=== PATIENT | female | born 1990 | race Two or more races ===

== ENCOUNTER 2021-07-01 04:52 | Inpatient (IN) | payer OTHER ==
[2021-07-01 11:57] LABS: BASO % 0.8 % (0-2.0); EOS % 3.3 % (0-4.5); HEMATOCRIT 38.2 % (32.4-45.2); HEMOGLOBIN 12.6 GM/dL (10.7-15.3); LYMPH % 34.4 % (8-40); MCH 25.9 pg (25.7-33.7); MEAN CELL VOLUME 78.6 fl (80-96); MONO % 6.8 % (3.8-10.2); NEUT % 54.7 % (42.8-82.8); PLATELET COUNT 308 10^3/uL (134-434); RBC 4.86 M/mm3 (3.60-5.2); RDW 14.2 % (11.6-15.6); WHITE BLOOD COUNT 7.2 K/mm3 (4.0-10.0)
[2021-07-01 12:01] LABS: INR 1.18 (0.83-1.09); PROTHROMBIN TIME (PATIENT) 13.2 SEC (9.7-13.0)
[2021-07-01 12:04] LABS: ACTIVATED PTT 33.3 SECONDS (25.2-36.5)
[2021-07-01 12:16] LABS: BLOOD UREA NITROGEN 10.2 mg/dL (7-18); CALCIUM 9.3 mg/dL (8.5-10.1)
[2021-07-01 12:19] LABS: CREATININE 0.9 mg/dL (0.55-1.3)
[2021-07-01] MEDS ORDERED: PROPOFOL 20 ML ONE ×2 (13:43→14:47)
[2021-07-01] MEDS ORDERED: KETOROLAC TROMETHAMINE 30 MG/1 ML VIAL ONE (13:43)
[2021-07-01] MEDS ORDERED: SUCCINYLCHOLINE CHLORIDE 200 MG/10 ML SYRINGE ONE ×2 (13:43→14:47)
[2021-07-01] MEDS ORDERED: DEXAMETHASONE SOD PHOSPHATE 4 MG/1 ML VIAL ONE (13:43)
[2021-07-01] MEDS ORDERED: LIDOCAINE HCL/PF 2% SDV 5ML VIAL ONE (13:43)
[2021-07-01] MEDS ORDERED: LIDOCAINE HCL 2% 100 MG/5 ML DISP.SYRIN ONE (13:43)
[2021-07-01] MEDS ORDERED: oxyCODONE HCL 5 MG TABLET PO PRN (14:38)
[2021-07-01] MEDS ORDERED: ONDANSETRON 4 MG/2 ML VIAL IVPUSH PRN ×2 (14:38→15:27)
[2021-07-01] MEDS ORDERED: ELECTROLYTE-148 SOLN 1,000 ML IV SCH (14:45)
[2021-07-01] MEDS ORDERED: PROMETHAZINE HCL 25 MG/1 ML VIAL IVPUSH PRN (15:27)
[2021-07-01] MEDS ORDERED: FUROSEMIDE 40 MG/4 ML INJECTABLE VIAL ONE (15:54)
[2021-07-01 18:45] LABS: BASO % 0.3 % (0-2.0); EOS % 0.1 % (0-4.5); HEMATOCRIT 37.1 % (32.4-45.2); HEMOGLOBIN 12.6 GM/dL (10.7-15.3); LYMPH % 8.5 % (8-40); MCH 26.1 pg (25.7-33.7); MCHC 33.9 g/dl (32.0-36.0); MEAN CELL VOLUME 77.1 fl (80-96); MEAN PLT VOLUME 7.9 fl (7.5-11.1); MONO % 2.4 % (3.8-10.2); NEUT % 88.7 % (42.8-82.8); PLATELET COUNT 313 10^3/uL (134-434); RBC 4.81 M/mm3 (3.60-5.2); RDW 14.2 % (11.6-15.6); WHITE BLOOD COUNT 15.4 K/mm3 (4.0-10.0)
[2021-07-01 19:12] LABS: CALCIUM 8.9 mg/dL (8.5-10.1)
[2021-07-01 19:14] LABS: ALBUMIN 3.5 g/dl (3.4-5.0); BLOOD UREA NITROGEN 11.5 mg/dL (7-18)
[2021-07-01 19:17] LABS: BILIRUBIN,TOTAL 0.3 mg/dL (0.2-1); CREATININE 1.4 mg/dL (0.55-1.3)
[2021-07-01 19:18] LABS: TOT PROT 7.2 g/dl (6.4-8.2)
[2021-07-01] MEDS: oxyCODONE HCL 5 MG TABLET PO PRN (22:25)
[2021-07-02 07:17] LABS: CALCIUM 8.9 mg/dL (8.5-10.1)
[2021-07-02 07:18] LABS: ALBUMIN 3.2 g/dl (3.4-5.0); MAGNESIUM 2.4 mg/dL (1.8-2.4)
[2021-07-02 07:20] LABS: CREATININE 1.1 mg/dL (0.55-1.3); PHOSPHOROUS 4.6 mg/dL (2.5-4.9)
[2021-07-02 07:22] LABS: BILIRUBIN,TOTAL 0.7 mg/dL (0.2-1)
[2021-07-02] MEDS: oxyCODONE HCL 5 MG TABLET PO PRN ×3 (08:03→21:00)
[2021-07-02] MEDS ORDERED: ACETAMINOPHEN 325 MG TABLET (FP) PO ONE (12:14)
[2021-07-03] MEDS: IBUPROFEN 600 MG TABLET (FP) PO PRN ×2 (00:35→08:13)
[2021-07-03 06:49] LABS: HEMATOCRIT 34.9 % (32.4-45.2); HEMOGLOBIN 11.4 GM/dL (10.7-15.3); MCH 25.8 pg (25.7-33.7); MCHC 32.7 g/dl (32.0-36.0); MEAN CELL VOLUME 78.9 fl (80-96); MEAN PLT VOLUME 8.1 fl (7.5-11.1); PLATELET COUNT 255 10^3/uL (134-434); RBC 4.42 M/mm3 (3.60-5.2); RDW 14.1 % (11.6-15.6); WHITE BLOOD COUNT 9.9 K/mm3 (4.0-10.0)
[2021-07-03 06:58] LABS: CALCIUM 8.6 mg/dL (8.5-10.1)
[2021-07-03 06:59] LABS: BLOOD UREA NITROGEN 14.2 mg/dL (7-18)
[2021-07-03 07:03] LABS: BILIRUBIN,TOTAL 0.3 mg/dL (0.2-1); CREATININE 1.1 mg/dL (0.55-1.3); TOT PROT 6.4 g/dl (6.4-8.2)
[2021-07-03] MEDS ORDERED: ACETYLCYSTEINE 20% 200MG/ML 30 ML VIAL *FOR ORAL / INH USE ONLY NEB SCH (10:00)
[2021-07-03] MEDS: IBUPROFEN 800 MG/8 ML IJ IVPB PRN ×2 (13:36→21:39)
[2021-07-03] MEDS: guaiFENesin 200 MG/10 ML 10 ML UNIT-DOSE CUPS PO PRN ×2 (13:37→21:42)
[2021-07-03] MEDS ORDERED: SODIUM CHLORIDE NASAL SPRAY 44 ML BOTTLE NS PRN (20:07)
[2021-07-03] MEDS: ALBUTEROL SO4 0.083% IH SOL 2.5 MG/3 ML VIAL.NEB. NEB PRN (21:41)
[2021-07-04 06:43] LABS: BASO % 0.8 % (0-2.0); EOS % 5.3 % (0-4.5); HEMOGLOBIN 11.3 GM/dL (10.7-15.3); LYMPH % 35.5 % (8-40); MCH 26.6 pg (25.7-33.7); MCHC 33.4 g/dl (32.0-36.0); MEAN CELL VOLUME 79.5 fl (80-96); MEAN PLT VOLUME 7.9 fl (7.5-11.1); MONO % 8.8 % (3.8-10.2); NEUT % 49.6 % (42.8-82.8); PLATELET COUNT 262 10^3/uL (134-434); RBC 4.27 M/mm3 (3.60-5.2); WHITE BLOOD COUNT 7.5 K/mm3 (4.0-10.0)
[2021-07-04 07:03] LABS: CALCIUM 8.4 mg/dL (8.5-10.1)
[2021-07-04 07:04] LABS: BLOOD UREA NITROGEN 11.9 mg/dL (7-18); MAGNESIUM 1.8 mg/dL (1.8-2.4)
[2021-07-04 07:07] LABS: PHOSPHOROUS 3.6 mg/dL (2.5-4.9)
[2021-07-04 07:08] LABS: BILIRUBIN,TOTAL 0.4 mg/dL (0.2-1)
[2021-07-04 07:09] LABS: TOT PROT 6.5 g/dl (6.4-8.2)
[2021-07-04] MEDS: IBUPROFEN 600 MG TABLET (FP) PO PRN ×2 (10:02→21:52)
[2021-07-04] MEDS: guaiFENesin 200 MG/10 ML 10 ML UNIT-DOSE CUPS PO PRN (10:04)
[2021-07-04] MEDS: ACETYLCYSTEINE 20% 200MG/ML 4 ML VIAL *FOR ORAL / INH USE ONLY NEB SCH ×2 (12:01→20:41)
[2021-07-04 13:19] VITALS: BMI 48.6
[2021-07-04] MEDS: ALBUTEROL SO4 0.083% IH SOL 2.5 MG/3 ML VIAL.NEB. NEB PRN (20:41)
[2021-07-05 07:27] VITALS: TEMP 98.6
[2021-07-05] MEDS: ACETYLCYSTEINE 20% 200MG/ML 4 ML VIAL *FOR ORAL / INH USE ONLY NEB SCH (07:38)
[2021-07-05] MEDS ORDERED: MULTIVITAMINS (DAILY MVI) TABLET (FP) PO SCH (10:00)
[2021-07-05 12:42] VITALS: BP 110/57; PULSE 73
== END 2021-07-05 14:15 | disposition home or self-care (01) | DRG 987 ==
LOC: SUATTDRO 04:52 → JASU-SURG 04:52 → JASUSAT 04:52 → J2W 20:12 → JASUSAT 20:14 → J2W 20:14
PROVIDERS: ADMIT Internal Medicine; ATTEND Internal Medicine
PROC: 0UDB8ZZ Extraction of Endometrium, Via Natural or Artificial Opening Endoscopic (ICD-10-PCS; principal; 2021-07-01 13:30)
PROC: 0UB98ZZ Excision of Uterus, Via Natural or Artificial Opening Endoscopic (ICD-10-PCS; 2021-07-01 13:30)
DX: I97.89 Other postprocedural complications and disorders of the circulatory system, not elsewhere classified (principal); I46.2 Cardiac arrest due to underlying cardiac condition; J18.0 Bronchopneumonia, unspecified organism; Z68.42 Body mass index [BMI] 45.0-49.9, adult; E28.2 Polycystic ovarian syndrome; D72.829 Elevated white blood cell count, unspecified; E66.01 Morbid (severe) obesity due to excess calories; N84.0 Polyp of corpus uteri; R74.01 Elevation of levels of liver transaminase levels; R00.1 Bradycardia, unspecified; D25.0 Submucous leiomyoma of uterus; N92.1 Excessive and frequent menstruation with irregular cycle
CPT/HCPCS: 36415; 71045-TC-FY; 80048; 80053; 83735; 84100; 84484; 84702; 85025; 85027; 85610; 85730; 93005; 93010; 94640; 94760